=== PATIENT | male | born 1980 | race Caucasian/White ===

== ENCOUNTER 2022-11-05 11:28 | Outpatient (CLI) | payer OTHER, SELFPAY ==
[2022-11-05 11:36] VITALS: BMI 34.8
--- NOTE | 2022-11-05 11:41 | ECG_ITS ---
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 Interpretive Statements NAME OF STUDY: TREADMILL STRESS TEST INDICATION: Type 2 diabetic Baseline blood pressure of 135/109 mm Hg, heart rate of 104 beats per minute and oxygen saturation of 97%. EKG showed sinus tachycardia with normal axis with nonspecific T wave changes in lead III. The patient exercised for 6 minutes 40 seconds on a standard Mike protocol. Patient attained a maximum heart rate of 165 beats per minute(92% of the maximum predicted heart rate) with a blood pressure at the peak exercise of 172/103 mm Hg oxygen saturation of 95%. The EKG at the peak exercise revealed sinus tachycardia with no significant ST-T wave changes. Patient did not have any chest pain or any significant arrhythmis with the exercise. During the recovery phase, there were no new changes. Blood pressure at the end of the recovery phase was 146/106 mm Hg with a heart rate of 121 beats per minute oxygen saturation of 99%. CONCLUSION: 1. Normal EKG response to treadmill exercise. 2. No exercise-induced chest pain or cardiac arrhythmia 3. Good exercise tolerance, attained a maximum of 10.2 METs. 4. Baseline hypertension with normal response to exercise. Electronically Signed On 11-10-2022 17:58:16 CDT by Criss Estrella M.D. [email or web address]
[2022-11-05 12:06] VITALS: BP 146/106; PULSE 121
== END 2022-11-05 11:29 | disposition home or self-care (01) ==
PROVIDERS: PCP Family Medicine; Visit Provider Family Medicine
DX: E11.65 Type 2 diabetes mellitus with hyperglycemia (principal); Z79.4 Long term (current) use of insulin; I10 Essential (primary) hypertension; E78.1 Pure hyperglyceridemia
CPT/HCPCS: 93017

== ENCOUNTER 2022-12-24 07:22 | Emergency (ER) | payer OTHER, SELFPAY ==
[2022-12-24 07:28] VITALS: BP 180/104; PULSE 87; RESP 18; TEMP 36.8; O2SAT 100; BMI 36.2
--- NOTE | 2022-12-24 07:33 | ED_ITS ---
HPI - Extremity Problem General: Chief complaint: Extremity Injury, Lower Stated complaint: sores on right foot Time Seen by Provider: 12/24/22 07:24 Source: patient Mode of arrival: ambulatory Limitations: no limitations History of Present Illness: Patient presents to the emergency department today for evaluation treatment of 2 toe ulcers and associated erythema. Patient reports he is a diabetic. 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 He thought he developed a blister while wearing his boots. He states a couple of days ago the ulceration on the bottom of his right great toe seem to get worse and he noticed a new spot developing along the medial side of the right second toe. The second toe became diffusely erythemato us extending up to the MTP region and he called a [facility]. They encouraged him to be seen and evaluated last night and states he went to [place]. He indicated he was not confident in their treatment plan and wanted a second opinion. He states he received lab work and imaging and was prescribed doxycycline. He states he has not taken the doxycycline yet. No indications of abnormal lab work and he did allow me to read the x-ray from his patient portal. They specifically note no signs of air or gas in the soft tissue and no signs of any bony injury concerning for osteomyelitis. They noted diffuse swelling consistent with cellulitis. Review of Systems General: Reports: 10 or more systems reviewed and unremarkable except in HPI and below Physical Exam Const: COMMON NORMALS: no acute distress, patient oriented x3 and alert HENMT: COMMON NORMALS: normocephalic, atraumatic and hearing grossly normal bilaterally HEAD & SCALP: normocephalic and atraumatic Eye: COMMON NORMALS: Equal, round and reactive pupils present, EOMs intact bilaterally and conjunctivae normal CONJUNCTIVA: Yes conjunctivae normal PUPIL: Yes Equal, round and reactive pupils present Neck/C-Spine: COMMON NORMALS: full ROM and no JVD Lymph: LYMPHATIC: no lymphadenopathy noted Resp: COMMON NORMALS: normal respiratory effort, No retractions and No use of accessory muscles Cardio: COMMON NORMALS: no JVD and regular rate RATE: regular rate Extremity: NARRATIVE EXTREMITY EXAM: Patient is independently ambulatory and weightbearing here in the emergency department. Patient with full flexion extension of the toes on the right foot. Neuro: COMMON NORMALS: patient oriented x3 SENSORIUM/ORIENTATION: Yes alert Psych: COMMON NORMALS: mental status grossly normal, Normal thought process present, cooperative and normal affect THOUGHT PROCESS: Normal thought process present Skin: NARRATIVE SKIN EXAM: Patient has an ulceration approximately 1-1/2 cm in diameter located to the toe pad of the right great toe. Skin within the ulcer is a bright red color without active draining or scabbing. No bleeding. Minimal surrounding redness of the right great toe pad. Patient has a smaller ulcer approximately 0.75 cm in diameter located on the medial side of the right second toe with an overlying purulent accumulation noted. The second toe on the right foot is diffusely erythematous and swollen with erythema extending up the dorsal aspect of the foot just past the MTP region. Patient indicates no pain to the areas of ulceration. Course Vital Signs: Vital signs: Vital Signs Temperature 98.2 F 12/24/22 07:28 Pulse Rate 87 12/24/22 07:28 Respiratory Rate 18 12/24/22 07:28 Blood Pressure 180/104 12/24/22 07:28 Pulse Oximetry 100 12/24/22 07:28 Oxygen Delivery Me thod Room Air 12/24/22 07:28 MDM - Extremity (Nontraumatic) Medical Decision Making Patient has 2 areas of ulceration noted to the right toes. Patient is a diabetic. Patient also has findings of diffuse cellulitis to the second toe. Based on the patient's evaluation last night it does not appear there is any concerns for gangrene or osteomyelitis. When asked what the patient's concerns were from his care yesterday he indicated that they seemed unsure what to do. He states he was told originally he would have to be admitted for IV antibiotics but, then was discharged home with oral antibiotics. I explained to him that they were most likely concerned about an osteomyelitis which does require IV antibiotics and often inpatient hospitalization but, according to the x-ray, showed no acute concerns. At this time, I agree patient can be treated on an outpatient basis but, given that the location of the wounds is on the foot and, occurred inside the patient's work boots while working a 13-hour shift as a dispatcher clerk, would also like to cover for Pseudomonas. Patient is encouraged to take the doxycycline he was already given as well as metronidazole. Warned him of upset stomach with metronidazole and to avoid alcohol intake. Patient's wounds were cleaned and bandaged here in the emergency department. I obtained a wound culture from the wound on the second toe for culture and sensitivity. I also requested a follow-up appointment with wound care as I explained to the patient, diabetic foot wounds can often take quite some time to heal up and do require serial monitoring. Patient was given opportunity to ask questions or clarify treatment plan however, he indicated he understood and agreed to treatment plan. Differential Diagnosis Likely gout and cellulitis (Ulcer, gangrene) No radiology studies performed this visit (X-rays performed at another location with final results visible in patient portal for clinician review in ER today.) Discharge Plan Discharge Patient Disposition: Home Clinical Impression: Diabetic ulcer of toe associated with type 2 diabetes mellitus, Cellulitis of toe of right foot Condition: Stable Prescriptions: New metronidazole 500 mg tablet 500 mg PO BID 7 Days Qty: 14 0RF Discharge Orders: Discharge ED (Routine); Ordered 12/24/22 Ordered By: Staci Douglass Referrals: Dima Jones [Primary Care Provider] - Discharge Diet: Diabetic Discharge Activity: Increase activity as tolerated Patient Instructions: Diabetic Foot Ulcers (ED) Activity Restrictions/Additional Instructions: Examination today does show to ulcerations-1 located to your great toe and another to your second toe. You also have signs of a spreading cellulitis of the soft tissue in the second toe as well. Upon review of the x-ray you had performed last night, they do indicate the soft tissue swelling without concerns of any further development of gangrene or bone involvement. We did obtain a sample of the wound drainage for further evaluation of the bacterial cause to make sure that all antibiotics prescribed today will cover your particular infection. I do recommend taking doxycycline that was prescribed last night but I am also prescribing metronidazole. This medication covers for moisture borne infections which are often found in shoes. We recommend washing your wounds once or twice a day with warm water and a mild soap and then applying bandaging to prevent the wounds from coming into contact with wet surfaces such as in the shoes. Wear dry socks at all times. I have also requested an appointment with our wound care as unfortunately, diabetic neuropathic ulcers of the feet are often very difficult to treat and require serial follow-up and monitoring. If for any reason you notice sudden acute worsening before being able to be seen by wound care we do recommend you return back here to the emergency department for reevaluation. Coding Level of Care Code ED Minute Clerk For [employer] for Nadeem Hayden
== END 2022-12-24 08:23 | disposition home or self-care (01) ==
PROVIDERS: Emergency Provider Physician Assistant; PCP Family Medicine
DX: E11.621 Type 2 diabetes mellitus with foot ulcer (principal); L97.519 Non-pressure chronic ulcer of other part of right foot with unspecified severity; L03.031 Cellulitis of right toe
CPT/HCPCS: 87070; 87077; 87186; 99283